=== PATIENT | female | born 1960 | race Caucasian/White ===

== ENCOUNTER 2025-03-02 07:35 | Day surgery (SDC) | payer MEDICAID, SELFPAY ==
[2025-03-01 10:30] VITALS: BMI 37.9
[2025-03-01 12:23] LABS: Basophils # (Auto) 0.1 Thou/mm3 (0.0-0.2); Basophils % (Auto) 1 % (0-2.5); Eosinophils # (Auto) 0.6 Thou/mm3 (0.0-0.5); Eosinophils % (Auto) 6 % (0-10); Hematocrit 39.6 % (36.0-46.0); Hemoglobin 12.9 g/dL (12.0-16.0); Immature Granulocytes Auto 0.03 Thou/mm3 (0.00-0.00); Lymphocytes # (Auto) 2.1 Thou/mm3 (1.0-4.8); Lymphocytes % (Auto) 20 % (10-50); Mean Corpuscular HGB Conc 32.6 g/dl (31.0-37.0); Mean Corpuscular Hemoglobin 29.5 pg (25.0-35.0); Mean Corpuscular Volume 90 fL (80-100); Monocytes # (Auto) 0.6 Thou/mm3 (0.0-0.8); Monocytes % (Auto) 6 % (0-12); Neutrophils # (Auto) 7.4 Thou/mm3 (1.8-7.7); Neutrophils % (Auto) 68 % (37-80); Nucleated Red Blood Cell # 0.00 Thou/mm3 (0.00-0.00); Nucleated Red Blood Cell % 0 /100 WBC (0); Platelet Count 249 Thou/mm3 (140-440); RDW Standard Deviation 42.4 fL (36.4-46.3); Red Blood Count 4.38 Miln/mm3 (4.00-5.20); White Blood Count 10.8 Thou/mm3 (3.6-11.0)
[2025-03-01 12:30] LABS: INR 1.0 (0.9-1.3); Partial Thromboplastin Time 26.4 Seconds (22.0-36.0); Prothrombin Time 10.6 Seconds (9.0-12.2)
[2025-03-01 12:38] LABS: Alanine Aminotransferase 23 U/L (10-49); Albumin, Serum 4.2 gm/dL (3.4-4.8); Albumin/Globulin Ratio 1.8 (1.2-2.2); Alkaline Phosphatase 112 U/L (46-116); Anion Gap 7 (7-16); Aspartate Amino Transferase 23 U/L (0-34); BUN/Creatinine Ratio 14 Ratio (12-20); Bilirubin,Total 0.3 mg/dL (0.3-1.2); Blood Urea Nitrogen 11 mg/dL (9-23); Calcium 9.9 mg/dL (8.3-10.6); Calcium (Corrected) 9.9 mg/dL (8.5-10.1); Carbon Dioxide 31.0 mMol/L (20.0-31.0); Chloride 103 mMol/L (98-107); Creatinine (Component) 0.8 mg/dL (0.6-1.3); Estimated Creatinine Clearance 90.7 mL/min (>60); Globulin 2.4 gm/dL (2.3-3.5); Glucose 102 mg/dL (74-106); Osmolality,Calculated 280 (275-295); Potassium 4.2 mMol/L (3.4-5.1); Sodium 141 mMol/L (136-145); Total Protein 6.6 gm/dL (5.7-8.2); eGFR > 60 See Note
--- NOTE | 2025-03-01 14:27 | SUR.PREOP ---
Health history reviewed with Dr Vogel.
[2025-03-02] VITALS (9 sets, daily range): BP systolic 115–169; BP diastolic 69–84; PULSE 57–78; RESP 12–20; TEMP 36.2–36.3; O2SAT 95–100; BMI 39.4
--- NOTE | 2025-03-02 06:00 | EKG_ITS ---
[facility] Test Date: 2025-03-02 Pat Name: RENETTA DUMAS Department: Room: - Gender: Female Business Office Assistant: GERMÁN : 1960 Requested By: Irvin Badillo Order Number: [id number] Reading MD: Irvin Badillo Measurements Intervals [place] Rate: 57 P: 31 KS: 187 QRS: 15 QRSD: 136 T: 26 QT: 493 QTc: 482 Interpretive Statements SINUS BRADYCARDIA RIGHT BUNDLE BRANCH BLOCK No previous ECG available for comparison /[id number]
[2025-03-02] MEDS: RINGERS LACTATED 1000 ML 1,000 ML 20 ML IV (08:50)
[2025-03-02] MEDS: ALBUTEROL RT 2.5 MG/3 ML NEBU INH (10:19)
--- NOTE | 2025-03-02 11:55 | SUR.PHASEI ---
pt arrived to PACU via gurney obtunded, breathing unlabored, VS stable, dressing to bilateral lower extremities clean, dry, and intact, report from Stefania KINNEY and Dr Jones
--- NOTE | 2025-03-02 11:59 | ESOP_ITS ---
Date of Procedure 03/02/25 Pre Op Diagnosis Chronic venous insufficiency with inflammation and venous stasis dermatitis bilaterally Post Op Diagnosis Same as pre-op diagnosis Procedure Radiofrequency endovenous ablation of both greater saphenous veins Findings Both greater saphenous veins were successfully closed with no evidence of deep vein thrombosis Procedure Description The patient was brought to the operating room and general anesthesia was induced. A timeout was performed. The left lower extremity was performed first. Ultrasound was used to map out the course of the greater saphenous vein between the knee and the saphenofemoral junction and the left thigh. Ultrasound was then used to access the greater saphenous vein just above the knee with a 21-gauge mini stick needle followed by mini stick wire then a 7 Bulgarian sheath introducer was placed. The ablation catheter was brought to the field prepped and placed into the patient with the tip carefully positioned 3 to 5 cm distal to the saphenofemoral junction. Tumescent anesthesia was then instilled in the tissues surrounding the vein along the treatment length. Catheter tip position was once again ensured and then under direct ultrasound compression the catheter was activated with 2 cycles proximally and 3 additional cycles down the leg. The saphenofemoral ju nction was then inspected and found to be compressible with good flow and augmentation and no evidence of clot in either the saphenofemoral junction or the common femoral vein. The sheath and catheter removed then in a similar fashion the right greater saphenous vein was accessed and a new sheath was placed. The same catheter was then cleaned and placed into the right leg with the tip carefully positioned 3 to 5 cm distal to the saphenofemoral junction. Tumescent anesthesia was instilled in the tissues surrounding the vein over the treatment length. Catheter tip position was once again ensured and then under direct ultrasound compression the catheter was activated with 2 cycles distally and then 2 additional cycles down the leg. The saphenofemoral junction was then inspected with ultrasound and found to be compressible with good flow and augmentation and no evidence of clot in either the saphenofemoral junction or the common femoral vein. The sheath was removed and pressure was held till hemostasis obtained. The patient woke well from anesthesia and was moved to recovery in stable condition Anesthesia other (Laryngeal mask anesthesia) Pathology / specimen None Estimated Blood Loss 3 Condition Stable Disposition PACU Surgeon Irvin Elena MD Surgical Staff Operation Date: 03/02/25 11:00 Case Staff Anesthesiologist: Remberto Jones
--- NOTE | 2025-03-02 12:13 | SUR.PHASEI ---
1213: Pt. wakes to name then drifts back to sleep, vitals stable, breathing unlabored, no complaint of pain or nausea, dressing to bilateral legs CDI, no active bleed noted, pt. does had some edema and discoloration, per Kami García RN, she had that prior to surgery as well, report received from Kami García RN. Resuming care of pt.
--- NOTE | 2025-03-02 12:13 | SUR.PHASEI ---
report to Sammie KINNEY
--- NOTE | 2025-03-02 13:10 | SUR.PHASEII ---
1310: Pt. AAOx4, vitals stable, breathing unlabored, no complaint of pain or nausea, dressing to bilateral legs CDI, no active bleed noted, bilateral dorsalis pedis pulses strong and regular, cap refill to bilateral feet less than 3 seconds, pt. tolerated sips of water well, pt. ambulated to wheelchair with steady gait and no assist, no complications. Gave discharge instructions to the pt. and her ride, both verbalized understanding and had no further questions. Pt. left with all personal belongings.
== END 2025-03-02 13:10 | disposition home or self-care (01) ==
PROVIDERS: Anesthesiology; PCP Internal Medicine; Referring Provider Surgery Vascular Surgery; Visit Provider Surgery Vascular Surgery
PROC: (CPT 36475; principal; 2025-03-02 11:00)
DX: I87.2 Venous insufficiency (chronic) (peripheral) (principal); I45.10 Unspecified right bundle-branch block; I10 Essential (primary) hypertension; I87.323 Chronic venous hypertension (idiopathic) with inflammation of bilateral lower extremity; Q82.0 Hereditary lymphedema; I70.213 Atherosclerosis of native arteries of extremities with intermittent claudication, bilateral legs
CPT/HCPCS: 36475; 36415; 80053; 85025; 85610; 85730; 93005; A4217; A4649; C1769; C1894; J0131; J0461; J0690; J1100; J1885; J2250; J2704; J3010; J3490; J7050; J7120